=== PATIENT | male | born 1940 | race Caucasian/White ===

== ENCOUNTER 2016-07-28 10:48 | Inpatient (IN) | payer MEDICARE ==
[~2016-07-28] VITALS: Ht 182.9 cm; Wt 67.2 kg
[2016-07-28] MEDS ORDERED: QUET50TA PO (11:19)
[2016-07-28] MEDS ORDERED: QUET25TA PO ×2 (11:19)
[2016-07-28] MEDS ORDERED: MEMA5TAB PO (11:19)
[2016-07-28] MEDS ORDERED: POLY17PO5 PO (11:19)
[2016-07-28] MEDS ORDERED: METO50TA82 PO (11:19)
[2016-07-28] MEDS ORDERED: SODIUM CHLORIDE 0.9% 1,000ML IVBOLUS ONE ×2 (11:30→12:30)
[2016-07-28] MEDS ORDERED: SODIUM CHLORIDE FLUSH 10ML SYR IVF ONE (11:30)
[2016-07-28 11:55] LABS: BLOOD UREA NITROGEN 37 mg/dL (7-18)
[2016-07-28 11:56] LABS: ASPARTATE AMINO TRANSFERASE 20 U/L (15-37)
[2016-07-28 12:29] LABS: DIFF TOTAL CELLS COUNTED 100 CELL DIFF
[2016-07-28] MEDS ORDERED: CEFTRIAXONE PMX 1GM/50ML 50 ML IV ONE (12:30)
[2016-07-28 12:31] LABS: VERIFY COUNTS? YES
[2016-07-28 12:32] LABS: ANISOCYTOSIS 1+; LARGE PLATELETS 1+; OVALOCYTES 1+; POIKILOCYTOSIS 1+
[2016-07-28] MEDS ORDERED: DILTIAZEM 125 MG in DEXTROSE 5% 100 ML IV SCH (12:51)
[2016-07-28] MEDS ORDERED: CEFTRIAXONE PMX 1GM/50ML 50 ML ONE (12:57)
[2016-07-28] MEDS ORDERED: DILTIAZEM 5 MG/ML, 5ML ONE (12:59)
[2016-07-28] MEDS ORDERED: DILTIAZEM 5 MG/ML, 5ML IV ONE (13:00)
[2016-07-28] MEDS ORDERED: LORazepam 2 MG/ML, 1ML ONE (13:26)
[2016-07-28] MEDS ORDERED: LORazepam 2 MG/ML, 1ML IVPush ONE (13:30)
[2016-07-28] MEDS ORDERED: SODIUM CHLORIDE FLUSH 10ML SYR IVF PRN (14:00)
[2016-07-28 15:30] VITALS: BP 120/63
[2016-07-28] MEDS ORDERED: PROMETHAZINE 25 MG/ML, 1ML IM PRN (18:00)
[2016-07-28] MEDS ORDERED: ONDANSETRON 2MG/ML, 2ML IVPush PRN (18:00)
[2016-07-28] MEDS ORDERED: PHARMACY MAY ADJ FOR RENAL FX MC PRN (18:00)
[2016-07-28] MEDS ORDERED: CEFTRIAXONE PMX 1GM/50ML 50 ML IV SCH (18:00)
[2016-07-28] MEDS ORDERED: DOCUSATE 100 MG CAPSULE PO PRN (18:00)
[2016-07-28] MEDS ORDERED: ENALAPRILAT 1.25 MG/ML, 2ML IVPush PRN (18:00)
[2016-07-28] MEDS ORDERED: LABETALOL 5MG/ML, 20ML IVPush PRN (18:00)
[2016-07-28] MEDS ORDERED: BISACODYL 10 MG SUPP PR PRN (18:00)
[2016-07-28] MEDS ORDERED: DILTIAZEM 125 MG in SODIUM CHLORIDE 0.9% 100 ML IV PRN (18:00)
[2016-07-28] MEDS ORDERED: POLYETHYLENE GLYCOL 17 GM PACKET PO PRN (18:00)
[2016-07-28 19:12] LABS: IS PT STATUS REG ER OR PRE ER? NO
[2016-07-28 19:21] VITALS: BP 109/61
[2016-07-28] MEDS: SODIUM CHLORIDE 0.9% 1,000 ML IV SCH (19:56)
[2016-07-28] MEDS: QUETIAPINE 25MG TABLET PO SCH (19:57)
[2016-07-28] MEDS: ENOXAPARIN 40 MG/0.4 ML SQ SCH (19:57)
[2016-07-28] MEDS: MEMANTINE 5MG TABLET PO SCH (19:57)
[2016-07-28] MEDS: METOPROLOL TARTRATE 50 MG TABLET PO SCH (19:57)
[2016-07-29 00:17] LABS: IS PT STATUS REG ER OR PRE ER? NO
[2016-07-29] MEDS: DILTIAZEM 125 MG in SODIUM CHLORIDE 0.9% 100 ML IV SCH ×2 (01:06→13:39)
[2016-07-29 01:07] VITALS: BP 114/74
[2016-07-29] MEDS ORDERED: PHARMACY INSTRUCTION MC SCH (03:00)
[2016-07-29 03:02] VITALS: BP 108/72
[2016-07-29] MEDS: MEROPENEM 1 GM in SODIUM CHLORIDE 0.9% 100 ML IV SCH ×2 (03:04→15:12)
[2016-07-29] MEDS: SODIUM CHLORIDE 0.9% 1,000 ML IV SCH ×3 (03:04→20:14)
[2016-07-29 05:15] LABS: BLOOD UREA NITROGEN 29 mg/dL (7-18)
[2016-07-29 05:26] LABS: ASPARTATE AMINO TRANSFERASE 23 U/L (15-37)
[2016-07-29 07:24] VITALS: BP 118/77
[2016-07-29] MEDS: MEMANTINE 5MG TABLET PO SCH ×2 (09:35→20:13)
[2016-07-29] MEDS: QUETIAPINE 25MG TABLET PO SCH ×3 (09:35→18:46)
[2016-07-29] MEDS: ASPIRIN 325 MG TABLET EC PO SCH (09:36)
[2016-07-29] MEDS: POLYETHYLENE GLYCOL 17 GM PACKET PO SCH (09:36)
[2016-07-29] MEDS: SENNA/DOCUSATE TABLET PO SCH (09:36)
[2016-07-29] MEDS: METOPROLOL TARTRATE 50 MG TABLET PO SCH ×2 (09:36→20:13)
[2016-07-29] MEDS ORDERED: DILTIAZEM 125 MG in SODIUM CHLORIDE 0.9% 100 ML IV PRN (13:30)
[2016-07-29 13:52] VITALS: BP 111/76
[2016-07-29] MEDS ORDERED: ACETAMINOPHEN 650 MG SUPP ONE (16:23)
[2016-07-29] MEDS: ACETAMINOPHEN 650 MG SUPP PR PRN ×2 (16:25→22:34)
[2016-07-29] MEDS ORDERED: VANCOMYCIN PER PHARMACY MC PRN (16:30)
[2016-07-29] MEDS ORDERED: PHARMACOKINETIC MONITORING MC PRN (17:00)
[2016-07-29] MEDS ORDERED: PHARMACOKINETIC CONSULTATION MC ONE (17:00)
[2016-07-29] MEDS: VANCOMYCIN 1,200 MG in SODIUM CHLORIDE 0.9% 250 ML IV SCH (17:56)
[2016-07-29 19:02] VITALS: BP 153/83
[2016-07-29 20:00] VITALS: BP 125/88
[2016-07-29] MEDS: ENOXAPARIN 40 MG/0.4 ML SQ SCH (20:13)
[2016-07-29] MEDS ORDERED: LORazepam 2 MG/ML, 1ML IVPush ONE (21:00)
[2016-07-30] MEDS: DILTIAZEM 125 MG in SODIUM CHLORIDE 0.9% 100 ML IV SCH (02:00)
[2016-07-30 02:32] VITALS: BP 115/83
[2016-07-30] MEDS: MEROPENEM 1 GM in SODIUM CHLORIDE 0.9% 100 ML IV SCH ×2 (02:36→15:14)
[2016-07-30] MEDS: DILTIAZEM 125 MG in SODIUM CHLORIDE 0.9% 100 ML IV PRN ×2 (04:21→21:52)
[2016-07-30] MEDS: ACETAMINOPHEN 650 MG SUPP PR PRN (06:04)
[2016-07-30 07:14] LABS: BLOOD UREA NITROGEN 26 mg/dL (7-18)
[2016-07-30 07:30] VITALS: BP 123/87
[2016-07-30] MEDS: POLYETHYLENE GLYCOL 17 GM PACKET PO SCH (09:00)
[2016-07-30] MEDS: SODIUM CHLORIDE 0.9% 1,000 ML IV SCH ×2 (09:15→16:46)
[2016-07-30] MEDS: METOPROLOL TARTRATE 50 MG TABLET PO SCH ×2 (10:15→21:19)
[2016-07-30] MEDS: ASPIRIN 325 MG TABLET EC PO SCH (10:18)
[2016-07-30] MEDS: MEMANTINE 5MG TABLET PO SCH ×2 (10:18→21:19)
[2016-07-30] MEDS: SENNA/DOCUSATE TABLET PO SCH (10:18)
[2016-07-30] MEDS: QUETIAPINE 25MG TABLET PO SCH ×3 (10:19→21:19)
[2016-07-30 14:00] VITALS: BP 106/56
[2016-07-30 15:44] VITALS: BP 105/69
[2016-07-30] MEDS: ACETAMINOPHEN 325 MG TABLET PO PRN ×2 (17:34→21:20)
[2016-07-30] MEDS: VANCOMYCIN 1,200 MG in SODIUM CHLORIDE 0.9% 250 ML IV SCH (17:34)
[2016-07-30 18:34] VITALS: BP 103/67
[2016-07-30] MEDS: ENOXAPARIN 40 MG/0.4 ML SQ SCH (21:19)
[2016-07-31] MEDS: SODIUM CHLORIDE 0.9% 1,000 ML IV SCH ×4 (01:14→18:40)
[2016-07-31 02:00] VITALS: BP 105/69
[2016-07-31] MEDS: MEROPENEM 1 GM in SODIUM CHLORIDE 0.9% 100 ML IV SCH ×2 (03:33→15:31)
[2016-07-31 05:04] LABS: ASPARTATE AMINO TRANSFERASE 26 U/L (15-37); BLOOD UREA NITROGEN 26 mg/dL (7-18)
[2016-07-31] MEDS: ASPIRIN 325 MG TABLET EC PO SCH (06:03)
[2016-07-31 08:36] VITALS: BP 129/78
[2016-07-31] MEDS: ACETAMINOPHEN 325 MG TABLET PO PRN ×3 (08:41→20:42)
[2016-07-31] MEDS: METOPROLOL TARTRATE 50 MG TABLET PO SCH ×2 (08:41→20:43)
[2016-07-31] MEDS: MEMANTINE 5MG TABLET PO SCH ×2 (08:41→20:43)
[2016-07-31] MEDS: QUETIAPINE 25MG TABLET PO SCH ×3 (08:41→20:43)
[2016-07-31] MEDS: POTASSIUM CHLORIDE 20 MEQ TAB.ER.PRT PO SCH ×2 (13:00→20:38)
[2016-07-31] MEDS: POTASSIUM ACID PHOSPHATE 500 MG TABLET.SOL PO SCH ×2 (13:00→20:43)
[2016-07-31 15:35] VITALS: BP 125/81
[2016-07-31 19:42] VITALS: BP 120/91
[2016-07-31] MEDS ORDERED: SODIUM CHLORIDE 0.9%, 250ML IVBOLUS ONE (20:30)
[2016-07-31] MEDS: ENOXAPARIN 40 MG/0.4 ML SQ SCH (20:38)
[2016-07-31] MEDS: POLYETHYLENE GLYCOL 17 GM PACKET PO SCH (20:43)
[2016-07-31] MEDS: SENNA/DOCUSATE TABLET PO SCH (20:44)
[2016-07-31] MEDS: DILTIAZEM 125 MG in SODIUM CHLORIDE 0.9% 100 ML IV PRN (22:01)
[2016-08-01 03:50] VITALS: BP 116/80
[2016-08-01] MEDS: SODIUM CHLORIDE 0.9% 1,000 ML IV SCH ×3 (03:50→20:19)
[2016-08-01] MEDS: MEROPENEM 1 GM in SODIUM CHLORIDE 0.9% 100 ML IV SCH ×2 (03:50→16:02)
[2016-08-01] MEDS: POTASSIUM ACID PHOSPHATE 500 MG TABLET.SOL PO SCH ×2 (03:50→08:30)
[2016-08-01 05:36] LABS: BLOOD UREA NITROGEN 21 mg/dL (7-18)
[2016-08-01] MEDS: ASPIRIN 325 MG TABLET EC PO SCH (05:37)
[2016-08-01] MEDS: SENNA/DOCUSATE TABLET PO SCH (07:15)
[2016-08-01] MEDS: POLYETHYLENE GLYCOL 17 GM PACKET PO SCH (07:15)
[2016-08-01 07:26] VITALS: BP 123/84
[2016-08-01] MEDS: QUETIAPINE 25MG TABLET PO SCH ×3 (08:29→20:15)
[2016-08-01] MEDS: DILTIAZEM 125 MG in SODIUM CHLORIDE 0.9% 100 ML IV PRN ×2 (08:29→20:20)
[2016-08-01] MEDS: MEMANTINE 5MG TABLET PO SCH ×2 (08:30→20:14)
[2016-08-01] MEDS: METOPROLOL TARTRATE 50 MG TABLET PO SCH ×2 (08:30→20:14)
[2016-08-01] MEDS: POTASSIUM CHLORIDE 20 MEQ TAB.ER.PRT PO SCH (08:37)
[2016-08-01 14:25] VITALS: BP 110/76
[2016-08-01] MEDS: ACETAMINOPHEN 325 MG TABLET PO PRN (14:28)
[2016-08-01 19:06] VITALS: BP 122/72
[2016-08-01] MEDS: ENOXAPARIN 40 MG/0.4 ML SQ SCH (20:14)
[2016-08-02 02:20] VITALS: BP 127/85
[2016-08-02] MEDS: MEROPENEM 1 GM in SODIUM CHLORIDE 0.9% 100 ML IV SCH ×2 (03:07→16:17)
[2016-08-02] MEDS: SODIUM CHLORIDE 0.9% 1,000 ML IV SCH ×3 (03:07→16:23)
[2016-08-02] MEDS: ASPIRIN 325 MG TABLET EC PO SCH (04:31)
[2016-08-02 06:19] LABS: BLOOD UREA NITROGEN 19 mg/dL (7-18)
[2016-08-02] MEDS: POLYETHYLENE GLYCOL 17 GM PACKET PO SCH (07:12)
[2016-08-02] MEDS: SENNA/DOCUSATE TABLET PO SCH (07:13)
[2016-08-02] MEDS: QUETIAPINE 25MG TABLET PO SCH ×3 (09:19→20:27)
[2016-08-02] MEDS: MEMANTINE 5MG TABLET PO SCH ×2 (09:19→20:26)
[2016-08-02] MEDS: METOPROLOL TARTRATE 50 MG TABLET PO SCH ×2 (09:19→20:27)
[2016-08-02 09:23] VITALS: BP 122/76
[2016-08-02] MEDS: DILTIAZEM 125 MG in SODIUM CHLORIDE 0.9% 100 ML IV PRN (10:34)
[2016-08-02] MEDS: ACETAMINOPHEN 325 MG TABLET PO PRN ×2 (16:17→20:26)
[2016-08-02 16:25] VITALS: BP 114/77
[2016-08-02 18:56] VITALS: BP 114/74
[2016-08-02 20:25] VITALS: BP 120/76
[2016-08-02] MEDS: ENOXAPARIN 40 MG/0.4 ML SQ SCH (20:27)
[2016-08-03] MEDS: SODIUM CHLORIDE 0.9% 1,000 ML IV SCH ×3 (00:33→22:50)
[2016-08-03] MEDS: DILTIAZEM 125 MG in SODIUM CHLORIDE 0.9% 100 ML IV PRN (00:33)
[2016-08-03 02:06] VITALS: BP 122/77
[2016-08-03] MEDS: MEROPENEM 1 GM in SODIUM CHLORIDE 0.9% 100 ML IV SCH ×2 (04:07→17:05)
[2016-08-03 05:25] LABS: BLOOD UREA NITROGEN 18 mg/dL (7-18)
[2016-08-03 06:06] VITALS: BP 126/95
[2016-08-03] MEDS: ASPIRIN 325 MG TABLET EC PO SCH (06:07)
[2016-08-03] MEDS: DILTIAZEM 60 MG TABLET PO SCH ×3 (06:07→17:05)
[2016-08-03 08:29] VITALS: BP 112/66
[2016-08-03] MEDS: MEMANTINE 5MG TABLET PO SCH ×2 (08:56→22:40)
[2016-08-03] MEDS: METOPROLOL TARTRATE 50 MG TABLET PO SCH ×2 (08:56→22:43)
[2016-08-03] MEDS: QUETIAPINE 25MG TABLET PO SCH ×3 (08:56→22:40)
[2016-08-03] MEDS: SENNA/DOCUSATE TABLET PO SCH (08:56)
[2016-08-03] MEDS: POLYETHYLENE GLYCOL 17 GM PACKET PO SCH (08:57)
[2016-08-03 11:56] LABS: PATH.CAST-FLAG NOT PRESENT; SPERM-FLAG NOT PRESENT; SRC-FLAG NOT PRESENT; XTAL-FLAG NOT PRESENT; YLC-FLAG NOT PRESENT
[2016-08-03 14:20] VITALS: BP 113/78
[2016-08-03 18:30] VITALS: BP 132/86
[2016-08-03] MEDS: ENOXAPARIN 40 MG/0.4 ML SQ SCH (22:39)
[2016-08-03 22:41] VITALS: BP 145/88
[2016-08-04] VITALS (7 sets, daily range): BP systolic 113–138; BP diastolic 71–93
[2016-08-04] MEDS: MEROPENEM 1 GM in SODIUM CHLORIDE 0.9% 100 ML IV SCH ×4 (00:19→23:17)
[2016-08-04] MEDS: DILTIAZEM 60 MG TABLET PO SCH ×5 (00:22→23:14)
[2016-08-04] MEDS: ASPIRIN 325 MG TABLET EC PO SCH (05:10)
[2016-08-04 05:23] LABS: BLOOD UREA NITROGEN 15 mg/dL (7-18)
[2016-08-04] MEDS: SENNA/DOCUSATE TABLET PO SCH (08:54)
[2016-08-04] MEDS: POLYETHYLENE GLYCOL 17 GM PACKET PO SCH (08:54)
[2016-08-04] MEDS: MEMANTINE 5MG TABLET PO SCH ×2 (08:54→20:05)
[2016-08-04] MEDS: METOPROLOL TARTRATE 50 MG TABLET PO SCH ×2 (08:55→20:05)
[2016-08-04] MEDS: QUETIAPINE 25MG TABLET PO SCH ×3 (08:55→20:05)
[2016-08-04] MEDS: SODIUM CHLORIDE 0.9% 1,000 ML IV SCH (16:31)
[2016-08-04] MEDS ORDERED: LORazepam 2 MG/ML, 1ML IVPush ONE (19:30)
[2016-08-04] MEDS: ENOXAPARIN 40 MG/0.4 ML SQ SCH (20:05)
[2016-08-04] MEDS: ACETAMINOPHEN 325 MG TABLET PO PRN (20:11)
[2016-08-05] VITALS (7 sets, daily range): BP systolic 108–135; BP diastolic 70–93
[2016-08-05] MEDS: DILTIAZEM 5 MG/ML, 5ML IVPush PRN ×2 (00:05→21:29)
[2016-08-05] MEDS: ASPIRIN 325 MG TABLET EC PO SCH (05:34)
[2016-08-05] MEDS: DILTIAZEM 60 MG TABLET PO SCH ×3 (05:34→18:14)
[2016-08-05] MEDS ORDERED: LORazepam 2 MG/ML, 1ML IVPush ONE (07:30)
[2016-08-05] MEDS: POLYETHYLENE GLYCOL 17 GM PACKET PO SCH (07:32)
[2016-08-05] MEDS: SENNA/DOCUSATE TABLET PO SCH (09:00)
[2016-08-05] MEDS: MEROPENEM 1 GM in SODIUM CHLORIDE 0.9% 100 ML IV SCH ×2 (09:50→16:09)
[2016-08-05] MEDS: METOPROLOL TARTRATE 50 MG TABLET PO SCH ×2 (09:50→21:00)
[2016-08-05] MEDS: QUETIAPINE 25MG TABLET PO SCH ×3 (09:50→21:00)
[2016-08-05] MEDS: MEMANTINE 5MG TABLET PO SCH ×2 (09:50→21:00)
[2016-08-05] MEDS: SODIUM CHLORIDE 0.9% 1,000 ML IV SCH (15:58)
[2016-08-05] MEDS: ENOXAPARIN 40 MG/0.4 ML SQ SCH (21:16)
[2016-08-05] MEDS ORDERED: DILTIAZEM 5 MG/ML, 5ML IVPush PRN (22:30)
[2016-08-06 01:44] VITALS: BP 123/81
[2016-08-06] MEDS: SODIUM CHLORIDE 0.9% 1,000 ML IV SCH ×2 (01:57→15:51)
[2016-08-06] MEDS: MEROPENEM 1 GM in SODIUM CHLORIDE 0.9% 100 ML IV SCH ×3 (01:57→15:50)
[2016-08-06] MEDS: DILTIAZEM 60 MG TABLET PO SCH ×4 (05:19→18:15)
[2016-08-06] MEDS: ASPIRIN 325 MG TABLET EC PO SCH (05:19)
[2016-08-06 07:38] VITALS: BP 122/88
[2016-08-06] MEDS: SENNA/DOCUSATE TABLET PO SCH (09:00)
[2016-08-06] MEDS: POLYETHYLENE GLYCOL 17 GM PACKET PO SCH (09:36)
[2016-08-06] MEDS: QUETIAPINE 25MG TABLET PO SCH ×3 (09:36→20:56)
[2016-08-06] MEDS: METOPROLOL TARTRATE 50 MG TABLET PO SCH ×2 (09:36→20:56)
[2016-08-06] MEDS: MEMANTINE 5MG TABLET PO SCH ×2 (09:36→20:56)
[2016-08-06 14:02] VITALS: BP 126/77
[2016-08-06 19:04] VITALS: BP 124/79
[2016-08-06] MEDS: ENOXAPARIN 40 MG/0.4 ML SQ SCH (20:56)
[2016-08-06 21:05] VITALS: BP 154/81
[2016-08-07 00:47] VITALS: BP 135/94
[2016-08-07] MEDS: DILTIAZEM 60 MG TABLET PO SCH ×4 (00:59→17:57)
[2016-08-07] MEDS: MEROPENEM 1 GM in SODIUM CHLORIDE 0.9% 100 ML IV SCH ×3 (01:00→17:57)
[2016-08-07 05:23] LABS: BLOOD UREA NITROGEN 15 mg/dL (7-18)
[2016-08-07] MEDS: ASPIRIN 325 MG TABLET EC PO SCH (06:00)
[2016-08-07 06:21] VITALS: BP 135/58
[2016-08-07] MEDS: METOPROLOL TARTRATE 50 MG TABLET PO SCH ×2 (08:37→20:37)
[2016-08-07] MEDS: SENNA/DOCUSATE TABLET PO SCH (08:37)
[2016-08-07] MEDS: POLYETHYLENE GLYCOL 17 GM PACKET PO SCH (08:37)
[2016-08-07] MEDS: MEMANTINE 5MG TABLET PO SCH ×2 (08:38→20:37)
[2016-08-07] MEDS: QUETIAPINE 25MG TABLET PO SCH ×3 (08:38→20:37)
[2016-08-07 14:25] VITALS: BP 137/97
[2016-08-07 20:35] VITALS: BP 130/78
[2016-08-07] MEDS: SODIUM CHLORIDE 0.9% 1,000 ML IV SCH (20:36)
[2016-08-07] MEDS: ENOXAPARIN 40 MG/0.4 ML SQ SCH (20:36)
[2016-08-08 00:27] VITALS: BP 122/80
[2016-08-08] MEDS: DILTIAZEM 60 MG TABLET PO SCH ×5 (00:28→23:57)
[2016-08-08] MEDS: MEROPENEM 1 GM in SODIUM CHLORIDE 0.9% 100 ML IV SCH ×4 (00:28→23:56)
[2016-08-08 01:08] VITALS: BP 122/80
[2016-08-08 05:13] VITALS: BP 111/76
[2016-08-08] MEDS: ASPIRIN 325 MG TABLET EC PO SCH (05:17)
[2016-08-08 06:56] VITALS: BP 108/72
[2016-08-08] MEDS: METOPROLOL TARTRATE 50 MG TABLET PO SCH ×2 (08:54→20:59)
[2016-08-08] MEDS: POLYETHYLENE GLYCOL 17 GM PACKET PO SCH (08:54)
[2016-08-08] MEDS: MEMANTINE 5MG TABLET PO SCH ×2 (08:54→20:59)
[2016-08-08] MEDS: QUETIAPINE 25MG TABLET PO SCH ×3 (08:54→20:59)
[2016-08-08] MEDS: SENNA/DOCUSATE TABLET PO SCH (08:55)
[2016-08-08] MEDS: SODIUM CHLORIDE 0.9% 1,000 ML IV SCH (09:20)
[2016-08-08 14:29] VITALS: BP 110/73
[2016-08-08 20:55] VITALS: BP 105/70
[2016-08-08] MEDS: ENOXAPARIN 40 MG/0.4 ML SQ SCH (20:59)
[2016-08-09] VITALS: BP 108/70
[2016-08-09] MEDS: SODIUM CHLORIDE 0.9% 1,000 ML IV SCH (04:25)
[2016-08-09 05:30] VITALS: BP 107/73
[2016-08-09] MEDS: DILTIAZEM 60 MG TABLET PO SCH ×2 (05:32→11:16)
[2016-08-09] MEDS: ASPIRIN 325 MG TABLET EC PO SCH (05:36)
[2016-08-09 07:30] VITALS: BP 115/73
[2016-08-09 08:07] LABS: % FREE PSA 8.9 % (.); PSA, FREE 0.63 ng/mL
[2016-08-09] MEDS: QUETIAPINE 25MG TABLET PO SCH (09:28)
[2016-08-09] MEDS: SENNA/DOCUSATE TABLET PO SCH (09:28)
[2016-08-09] MEDS: MEMANTINE 5MG TABLET PO SCH (09:28)
[2016-08-09] MEDS: METOPROLOL TARTRATE 50 MG TABLET PO SCH (09:28)
[2016-08-09] MEDS: MEROPENEM 1 GM in SODIUM CHLORIDE 0.9% 100 ML IV SCH (09:29)
[2016-08-09] MEDS: POLYETHYLENE GLYCOL 17 GM PACKET PO SCH (09:29)
[2016-08-09] MEDS ORDERED: BISA10SU65 PR (09:42)
[2016-08-09] MEDS ORDERED: ASPI-650 PO (09:42)
[2016-08-09] MEDS ORDERED: DILT60TA27 PO (09:42)
[2016-08-09] MEDS ORDERED: DOCU-30 PO (09:42)
[2016-08-09] MEDS ORDERED: NITR100C6 PO (09:42)
[2016-08-09] MEDS ORDERED: POLYETHYLENE GLYCOL 17 GM PACKET PO ONE (10:00)
[2016-08-09] MEDS ORDERED: BISACODYL 10 MG SUPP PR PRN (10:00)
[2016-08-09] MEDS ORDERED: PINK LADY ENEMA 1,000 ML PR PRN (10:00)
[2016-08-09 12:54] VITALS: BP 105/72
[2016-08-09] MEDS ORDERED: NITROFURANTOIN (MACROBID) 100 MG CAPSULE PO SCH (21:00)
== END 2016-08-09 14:55 | DRG 871 ==
LOC: ED 11:59 → EDIP 13:59 → 5SO 15:10 → 4WST 08-05 11:40
PROVIDERS: ADMIT Internal Medicine
PROC: 0T9B70Z Drainage of Bladder with Drainage Device, Via Natural or Artificial Opening (ICD-10-PCS; principal; 2016-07-28)
DX: A41.59 Other Gram-negative sepsis (principal); G93.41 Metabolic encephalopathy; E43 Unspecified severe protein-calorie malnutrition; N17.0 Acute kidney failure with tubular necrosis; D68.69 Other thrombophilia; N12 Tubulo-interstitial nephritis, not specified as acute or chronic; I50.22 Chronic systolic (congestive) heart failure; I82.612 Acute embolism and thrombosis of superficial veins of left upper extremity; J98.19 Other pulmonary collapse; E87.0 Hyperosmolality and hypernatremia; E87.2 Acidosis; B96.1 Klebsiella pneumoniae [K. pneumoniae] as the cause of diseases classified elsewhere; D64.9 Anemia, unspecified; F02.80 Dementia in other diseases classified elsewhere, unspecified severity, without behavioral disturbance, psychotic disturbance, mood disturbance, and anxiety; G30.9 Alzheimer's disease, unspecified; I11.0 Hypertensive heart disease with heart failure; I27.2 Other secondary pulmonary hypertension; I34.0 Nonrheumatic mitral (valve) insufficiency; I48.2 Chronic atrial fibrillation; N40.0 Benign prostatic hyperplasia without lower urinary tract symptoms; R65.20 Severe sepsis without septic shock; Z51.5 Encounter for palliative care; Z66 Do not resuscitate; Z78.1 Physical restraint status; Z79.01 Long term (current) use of anticoagulants; Z88.1 Allergy status to other antibiotic agents; Z88.8 Allergy status to other drugs, medicaments and biological substances; Z91.018 Allergy to other foods; Z68.20 Body mass index [BMI] 20.0-20.9, adult; R13.10 Dysphagia, unspecified
CPT/HCPCS: 36415; 70450; 71010; 71260; 74178; 76700; 80048; 80053; 80061; 81001; 83605; 83735; 84100; 84145; 84153; 84154; 84443; 84484; 85025; 87040; 87077; 87086; 87186; 93005; 93306; 96365; 96366; 96368; 96375; J0696; J1650; J2185; J3370; 92523-GN; G0103; J2060; J7030; J7050